=== PATIENT | female | born 1990 | race American Indian/Alaskan Native ===

== ENCOUNTER 2016-11-27 23:38 | Inpatient (IN) | payer OTHER ==
[2016-11-28] MEDS ORDERED: Phenaphthazine-PH Test Paper VI ONE (00:04)
[2016-11-28 00:24] VITALS: BMI 25.2
[2016-11-28] MEDS ORDERED: Lactated Ringer's 1,000 ML IV SCH (00:30)
--- NOTE | 2016-11-28 00:59 | OBHP ---
Datetime: 11/28/2016 00:00 IP Adm Impression: Term, intrauterine ; No Active Labor; Ruptured Membranes IP Admit Plan: Admit to unit; Initiate labor protocol Admit Comment, IP Provider: IUP at 39w c/o CTX pain all day since 7am, increased intensity at 7 pm and SROM at 11pm. No VB; +FM; Denies AP complications PNC: CP Dr Evangelista POBGYNHx: no STD; PMH: denies PSH: denies NKA PSoH: denies smoking; ETOH; drugs - A: IUP at 39w SROM latent phase of labor PLAN: Admit to L_D / Dr Evangelista aware Pelvic Type - PN: Adequate Extremities - PN: Normal Abdomen - PN: Normal Back - PN: Normal Breast - PN: Not Done Lungs - PN: Normal Heart - PN: Normal Thyroid - PN: Normal Neurologic - PN: Normal HEENT - PN: Normal General - PN: Normal Presentation-Admit: Vertex IP Fetus A Comments: Sonogram done Dr Garrido cephaljanessa FHR - Baseline A Provider: 130 Amniotic Fluid Color, Provider: Clear Membranes, Provider: Ruptured Contraction Comments Provider: + Comments, ACOG Physical Exam: ROS: General: no fatigue; no weakness HEENT: No GARCIA; no visual dist CV: No palpitations; no CP RESP: no SOB; no cough GI: no N/V/D : no F/U/D MS: no joint pain Pool Provider: Positive IP Hx Assessment: The History has been Reviewed and is Current EGA AdmitDate IP: 39.3 IP Chief Complaint: Uterine contractions; Suspected ruptured membranes NICHD Variability Prov Fetus A: Moderate 6-25bpm NICHD Accel Fetus A IP Provider: 15X15 FHR Category Provider Fetus A: Category I Dilatation, Provider: 3 Effacement, Provider: 90 Station, Provider: -1 Genitourinary Exam: Normal DTRs - PN: Normal
[2016-11-28 01:31] LABS: HEMOGLOBIN 14.3 g/dL (12.0-16.0); MEAN CELL VOLUME 97.9 fl (81.0-99.0); MEAN CORPUSCULAR HEMOGLOBIN 33.4 pg (27.0-31.0); MEAN CORPUSCULAR HGB CONC 34.2 g/dL (33.0-37.0); RBC 4.27 Mil/uL (3.80-5.20); WHITE BLOOD COUNT 9.7 K/uL (4.8-10.8)
[2016-11-28] MEDS ORDERED: Fentanyl/Bupivacaine HCl 0 ML EPI ONE (01:36)
--- NOTE | 2016-11-28 03:46 | OBDS ---
MATERNAL INFORMATION Estimated Blood Loss (ml): 350ml Maternal Complications: None LABOR SUMMARY EDC: 12/01/2016 00:00 No. Babies in Womb: 1 LABOR INFORMATION Reason for Induction: Not Applicable Onset of Labor: 11/27/2016 23:00 Steroids Given: None Reason Steroids Not Administered: Not Applicable MEMBRANES Membranes Rupture Method: Spontaneous Rupture of Membranes: 11/27/2016 23:00 Amniotic Fluid Color: Clear Amniotic Fluid Amount: Moderate Amniotic Fluid Odor: Normal VAGINAL DELIVERY Laceration Extension: Second Degree Laceration Type: Perineal Count Comment: correct PRESENTATION/POSITION BABY A Presentation: Cephalic
[2016-11-28] MEDS ORDERED: Benzocaine/Menthol SPRAY TOP PRN ×2 (04:32→06:46)
[2016-11-28] MEDS ORDERED: Oxycodone/Acetaminophen 5/325 mg Tab PO PRN ×2 (04:32→06:46)
[2016-11-28] MEDS ORDERED: Lidocaine 1% Inj (20ml) ONE (07:02)
--- NOTE | 2016-11-28 07:33 | OBPN ---
Datetime: 11/28/2016 02:00 IP Progress Impression: Reassuring heart rate IP Informed Consent Obtain: Vaginal Delivery; Risks, Benefits and Alternatives Discussed IP Progress Plan: Continue present management IP Progress Note Comment: LATE ENTRY FOR 02:00AM Notified that Dr Evangelista's patient felt pressure after epidural. She is more comfortable...full y dilated and 0 station....Dr Evangelista en route Datetime: 11/28/2016 00:00 Pool Provider: Positive Membranes, Provider: Ruptured Amniotic Fluid Color, Provider: Clear Contraction Comments Provider: + FHR - Baseline A Provider: 130 IP Fetus A Comments: Sonogram done Dr Garrido cephalic Gestation - Est Wks by US: 39+ Presentation-Admit: Vertex Vital Signs Provider: Reviewed; Within Normal Limits NICHD Accel Fetus A IP Provider: 15X15 FHR Category Provider Fetus A: Category I NICHD Variability Prov Fetus A: Moderate 6-25bpm Dilatation, Provider: 3 Effacement, Provider: 90 Station, Provider: -1 NICHD Decel Fetus A IP Provider: None
[2016-11-28] MEDS: Multivitamin With Minerals Tab PO SCH (08:30)
[2016-11-28] MEDS ORDERED: Multivitamin With Minerals Tab PO SCH (09:00)
[2016-11-28 13:15] LABS: MEAN CELL VOLUME 98.1 fl (81.0-99.0); MEAN CORPUSCULAR HEMOGLOBIN 33.4 pg (27.0-31.0); RBC 3.67 Mil/uL (3.80-5.20); WHITE BLOOD COUNT 14.2 K/uL (4.8-10.8)
[2016-11-28 13:26] LABS: HEMOGLOBIN 12.2 g/dL (12.0-16.0)
[2016-11-29] MEDS: Multivitamin With Minerals Tab PO SCH (08:37)
--- NOTE | 2016-11-29 08:58 | OBPPN ---
Datetime: 11/29/2016 08:54 PP Pain Prov: Within normal limits PP Nausea Prov: Denies PP Flatus Prov: Yes PP BM Prov: No PP Breasts Prov: Normal PP Heart Prov: Normal PP Lungs Prov: Normal PP Abdomen/Uterus Prov: Normal PP Lochia Prov: Normal PP Vulva/Perineum Prov: Normal PP CVA Tenderness Prov: Normal PP Extremities Prov: Normal PP Progress Prov: Normal PP Impression Prov: Normal progression PP Plan Prov: Continue present management PP Progress Note Prov: stable ppd 1 no complains continue present care IP PP Procedures: None Vital Signs Provider PP: Reviewed; Within Normal Limits
--- NOTE | 2016-11-29 09:06 | NBCIR ---
Datetime: 11/27/2016 23:55 Circumcision Request: Yes Consent Signed: Written Consent Signed and on Chart Circumcision Time Out: Correct Patient Identity; Correct Side and Site are Marked; Accurate Procedur e Consent Form; Agreement on Procedure to be Done; Correct Patient Position; Relevant Images and Resu lts are Properly Labeled and Displayed; Addressed Need to Administer Antibiotics or Fluids for Irriga tion; Safety Precautions Based on Patient History or Medication Use Site Prep: Povidine Iodine Block/Anesthestics: Emla Cream Equipment Used: Mogen Clamp Systemic Medications: None Complications: None Status: Tolerated Procedure Well Parents Present: None Procedure Note: after consent signed and under asceptic conditions circumcision done with mogen Datetime: 11/27/2016 23:38 PT-NAME: DON LESLIE
--- NOTE | 2016-11-30 08:02 | OBPPN ---
Datetime: 11/30/2016 07:59 PP Pain Prov: Within normal limits PP Nausea Prov: Denies PP Flatus Prov: Yes PP BM Prov: Yes PP Breasts Prov: Normal PP Heart Prov: Normal PP Lungs Prov: Normal PP Abdomen/Uterus Prov: Normal PP Lochia Prov: Normal PP Vulva/Perineum Prov: Normal PP CVA Tenderness Prov: Normal PP Extremities Prov: Normal PP Progress Prov: Normal PP Impression Prov: Normal progression PP Plan Prov: Continue present management PP Progress Note Prov: stable ppd2 continue present care IP PP Procedures: None Vital Signs Provider PP: Reviewed; Within Normal Limits
--- NOTE | 2016-11-30 08:05 | OBDCSUM ---
Datetime: 11/30/2016 08:01 Discharged to, Provider: Home Follow up at, Provider: Disch Instr Activity: Bedrest; May be up to bathroom; May be up for meals; May Shower Disch Instr Diet: Regular Discharge Instructions, Provider: Routine instructions given Discharge Diagnosis, Provider: Term Delivered Discharge Time: 11/30/2016 08:01 Follow up in weeks, Provider: 5-6weeks Disch Referrals: None Disch Activity Restrictions: No exercising; No lifting; No driving; Minimize walking; Minimize stair -climbing; No sexual activity; Nothing in vagina - [place], tampons, douche Discharge Comment, Provider: brittany home today rto 5-6weeks call office if any problems Contraception after Delivery: Undecided
[2016-11-30] MEDS: Multivitamin With Minerals Tab PO SCH (09:12)
[2016-11-30 18:10] VITALS: BP 109/72; PULSE 72; RESP 20; TEMP 98.6; O2SAT 100
== END 2016-11-30 14:00 | disposition home or self-care (01) | DRG 775 ==
LOC: H.EROB2 23:38 → H.L&D 11-28 00:24 → H.OB/GYN 11-28 05:30
PROVIDERS: ADMIT Specialist; ATTEND Specialist
PROC: 0KQM0ZZ Repair Perineum Muscle, Open Approach (ICD-10-PCS; principal; 2016-11-28)
PROC: 10E0XZZ Delivery of Products of Conception, External Approach (ICD-10-PCS; 2016-11-28)
PROC: 4A1HXCZ Monitoring of Products of Conception, Cardiac Rate, External Approach (ICD-10-PCS; 2016-11-28)
DX: O70.1 Second degree perineal laceration during delivery (principal); Z37.0 Single live birth; Z3A.39 39 weeks gestation of pregnancy